=== PATIENT | male | born 1985 | race Caucasian/White ===

== ENCOUNTER 2017-09-14 21:19 | Emergency (ER) | payer OTHER ==
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
[2017-09-14] MEDS ORDERED: SILVER SULFADIAZINE 1% TOP CREAM 50 GM JAR TP ONE (21:37)
[2017-09-14 21:38] VITALS: BP 114/65; PULSE 67; TEMP 98.1; BMI 24.9
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
[2017-09-15] MEDS ORDERED: SILVER SULFADIAZINE 1% TOP CREAM 50 GM JAR TP ONE (00:39)
== END 2017-09-15 01:08 | disposition home or self-care (01) ==
LOC: JER 21:19
PROC: 2W2DX4Z Dressing of Left Lower Arm using Bandage (ICD-10-PCS; principal; 2017-09-14)
DX: T22.212A Burn of second degree of left forearm, initial encounter (principal); T31.0 Burns involving less than 10% of body surface; X10.2XXA Contact with fats and cooking oils, initial encounter; Y93.G3 Activity, cooking and baking; Y92.000 Kitchen of unspecified non-institutional (private) residence as the place of occurrence of the external cause
CPT/HCPCS: 16020; 99282-25

== ENCOUNTER 2019-08-03 18:18 | Emergency (ER) | payer OTHER ==
[2019-08-03 18:23] VITALS: BP 123/69; PULSE 82; TEMP 98; BMI 25.8
[2019-08-03] MEDS ORDERED: IBUPROFEN 600 MG TABLET (FP) PO ONE ×2 (19:34→20:04)
--- NOTE | 2019-08-03 19:50 | PDOC ---
History of Present Illness - General Chief Complaint: Pain Stated Complaint: TESTICULAR PAIN Time Seen by Provider: 08/03/19 18:50 - History of Present Illness Initial Comments: 08/03/19 20:01 33 yo M no PMH, presenting with R testicular pain. Tajik speaking only. States that he initially had non-traumatic onset of this pain 1 month ago, but was low grade. 2 days ago, he was lifting laundry when he had significant worsening of R testicular pain to 8/10, pressure. Worsened by putting any pressure on it, by flexing to sit up. Has not taken anything at home. Called his PCP today, who told him to go to the ER. Denies fevers/chills, N/V, abdominal pain. States that he is only sexually active with his . Past History - Past Medical History Allergies/Adverse Reactions: Allergies Allergy/AdvReac Type Severity Reaction Status Date / Time No Known Allergies Allergy Verified 08/03/19 18:24 Home Medications: Ambulatory Orders Ibuprofen 800 mg PO TID #30 tablet 09/15/17 Oxycodone HCl/Acetaminophen [Percocet 5-325 mg Tablet] 1 - 2 tab PO Q6H #20 tablet MDD 8 09/15/17 Silver Sulfadiazine [Silvadene] 1,000 gm TP QID #1 cream..g. 09/15/17 Doxycycline Hyclate 100 mg PO BID #20 tablet 08/03/19 COPD: No - Surgical History Appendectomy: Yes - Psycho Social/Smoking Cessation Hx Smoking History: Never smoked Have you smoked in the past 12 months: No Hx Alcohol Use: No Drug/Substance Use Hx: No Substance Use Type: None Review of Systems - Review of Systems Comments:: 08/03/19 20:22 GENERAL/CONSTITUTIONAL: No fever or chills. No weakness. HEAD, EYES, EARS, NOSE AND THROAT: No change in vision. No ear pain or discharge. No sore throat. CARDIOVASCULAR: No chest pain or shortness of breath. RESPIRATORY: No cough, wheezing, or hemoptysis. GASTROINTESTINAL: No nausea, vomiting, diarrhea or constipation. GENITOURINARY: No dysuria, frequency, or change in urination. R testicular pain. MUSCULOSKELETAL: No joint or muscle swelling or pain. No neck or back pain. SKIN: No rash NEUROLOGIC: No headache, vertigo, loss of consciousness, or change in strength/ sensation. ENDOCRINE: No increased thirst. No abnormal weight change. HEMATOLOGIC/LYMPHATIC: No anemia, easy bleeding, or history of blood clots. ALLERGIC/IMMUNOLOGIC: No hives or skin allergy *Physical Exam - Vital Signs Last Vital Signs Temp Pulse Resp BP Pulse Ox 98 F 82 18 123/69 99 08/03/19 18:21 08/03/19 18:21 08/03/19 18:21 08/03/19 18:21 08/03/19 18:21 - Physical Exam 08/03/19 20:23 Gen: well-developed, well-nourished, in mild distress Neuro: AAOX4, CN II-XII intact, FTN intact, EOMI, PERRLA, 5/5 strength, SILT HEENT: atraumatic, normocephalic, dry mucous membranes Neck: trachea midline, supple CV: regular rate, regular rhythm, no murmurs, rubs, or gallops Pulm: CTA b/l, no wheezing Abd: soft, non-distended, non-tender : uncircumcised penis, tenderness of R testicle, normal cremasteric reflex MSK: full ROM, intact pulses Extr: no edema, no deformities Skin: warm, dry ED Treatment Course - RADIOLOGY Radiology Studies Ordered: Category Date Time Status SCROTUM AND CONTENTS US [US] Stat Ultrasound 08/03/19 19:02 Taken Medical Decision Making - Medical Decision Making 08/03/19 20:04 Concern for acute epidydymitis vs testicular torsion vs orchitis. - scrotal US - UA/UC - GC/CS amplification - ibuprofen 600mg for pain - reassess 08/03/19 20:17 Scrotal US negative for torsion. Patient denies sexual activity with anyone other than his , but will empirically treat with ceftriaxone 250ug IM and doxycycline 100mg BID for 10 days. Will f/u urine. 08/03/19 20:30 UA negative, will dc with appropriate antibiotics. Discharge - Discharge Information Problems reviewed: Yes Clinical Impression/Diagnosis: Testicular pain, right Condition: Stable Disposition: HOME - Admission No - Additional Discharge Information Prescriptions: Doxycycline Hyclate 100 mg PO BID #20 tablet - Follow up/Referral Referrals: Ron Paiz MD [Primary Care Provider] - - Patient Discharge Instructions Patient Printed Discharge Instructions: DI for Orchitis Additional Instructions: You were seen with right testicular pain. Your history, physical exam, and imaging are most consistent with inflammation of your right testicle. It is very important that you take your doxycycline 100mg twice a day for the next 10 days. Take ibuprofen as needed for pain. Follow up with your primary care doctor within one week. Return to the ED if you develop worsening symptoms. - Post Discharge Activity
[2019-08-03] MEDS ORDERED: DOXYCYCLINE HYCLATE 100 MG CAPSULE PO ONE ×2 (20:19→21:52)
[2019-08-03 20:28] LABS: URINE APPEARANCE CLOUDY; URINE BILIRUBIN NEGATIVE (NEGATIVE); URINE COLOR YELLOW; URINE GLUCOSE (UA) NEGATIVE (NEGATIVE); URINE KETONE NEGATIVE (NEGATIVE); URINE LEUK ESTERASE NEGATIVE (NEGATIVE); URINE NITRITE NEGATIVE (NEGATIVE); URINE PROTEIN NEGATIVE (NEGATIVE)
--- NOTE | 2019-08-03 21:08 | PDOC ---
Attending Attestation - Resident Resident Name: SamuelsAjay kang - ED Attending Attestation I have performed the following: I have examined & evaluated the patient, The case was reviewed & discussed with the resident, I agree w/resident's findings & plan, Exceptions are as noted - HPI HPI: 08/03/19 22:14 See resident HPI - Physicial Exam PE: 08/03/19 22:14 Agree with resident exam testes with normal lie - Medical Decision Making 08/03/19 22:15 33M with R testicular pain starting a month ago with acute worsening today after lifting laundry r/o torsion, conside epidydimitis, orchitis, varicocele, exam inconsistent with hernia f/u us, UA, gc/c US not concerning for torsion, UA, clear, gc/c for f/u will treat with abx empirically dc home, f/u pcp
[2019-08-03] MEDS ORDERED: ACETAMINOPHEN 325 MG TABLET (FP) ONE (22:11)
[2019-08-03] MEDS ORDERED: ACETAMINOPHEN 500 MG TABLET (FP) PO ONE (22:11)
== END 2019-08-03 22:18 | disposition home or self-care (01) ==
LOC: JER 18:18
DX: N50.811 Right testicular pain (principal)
CPT/HCPCS: 36415; 76870-TC; 81003; 87086; 87491; 87591; 99282-25